=== PATIENT | male | born 1970 | race Caucasian/White ===

== ENCOUNTER 2021-03-07 14:48 | Emergency (ER) | payer SELFPAY ==
--- NOTE | ~2021-03-07 | XR_ITS ---
EXAMINATION: XR knee RT 2V DATE: 03/07/2021 15:34 INDICATION: Right knee pain and swelling TECHNIQUE: Two views of the right knee were obtained. COMPARISON: None. FINDINGS: Alignment is normal. No fracture or osteochondral lesion. 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 There is a moderate size joint effusion. Soft tissues are unremarkable. IMPRESSION: 1. Moderate size joint effusion. Reviewed, dictated and finalized at location B.
[2021-03-07 15:05] VITALS: BP 162/92; PULSE 87; RESP 20; TEMP 36.7; O2SAT 95
[2021-03-07] MEDS: KETOROLAC (*BKC) 60 MG/2 ML VIAL IM (15:26)
--- NOTE | 2021-03-07 15:56 | ED.EXTPRO ---
HPI - Extremity Problem General Chief complaint: Extremity Problem,Nontraumatic Stated complaint: R Knee pain Source: patient Mode of arrival: ambulatory Limitations: no limitations History of Present Illness HPI Narrative: this is a 42-year-old gentleman that presents with right knee pain and swelling with no known injury has good range of motion although decreased secondary to pain and swelling, there is some point tenderness lateral aspect of his right knee with some no redness no erythema no calf pain or tenderness no fever or chills. Complaint: extremity pain and extremity swelling Onset (ago): week(s) Pain Consistency: constant Location: right and lower extremity Severity scale (1-10): 3 Quality: dull Radiation: none Relieving factors: immobilization Exacerbating factors: range of motion and weight bearing Related Data Allergies Allergy/AdvReac Type Severity Reaction Status Date / Time No Known Allergies Allergy Verified 03/07/21 15:16 Review of Systems Review of Systems: All systems reviewed & are unremarkable except as noted in HPI and below PMFSH Past Medical History Medical History Patient denies medical problems Exam Const: General: no acute distress Orientation/consciousness: patient oriented x3 HENMT: Head: normal to inspection Eyes: Conjunctivae: conjunctivae normal Pupils: Equal, round and reactive pupils present Neck: Neck: normal visual inspection and no lymphadenopathy Chest: Chest palpation & inspection: normal inspection of the chest Resp: Effort & Inspection: normal respiratory effort Auscultation: clear to auscultation bilaterally Cardio: Rate: regular rate Rhythm: regular rhythm GI: GI Palp: Yes Soft to palpation Percussion: Yes normal to percussion Back/Spine/Pelvis: Back: no CVA tenderness Skin: General skin exam: normal color Rashes: no rashes Neuro: General: patient oriented x3, moves all extremities and no meningeal signs Extrem: Other: right knee swelling and tenderness with palpation and movement Psych: Mental Status: mental status grossly normal Affect: normal affect Course Course Emergency Course: patient's reassessment of right knee has improved with some medication reviewed x-ray findings. Vital Signs Vital signs: Vital Signs Temperature 36.7 C 03/07/21 15:05 Pulse Rate 87 03/07/21 15:05 Respiratory Rate 20 03/07/21 15:05 Blood Pressure 162/92 H 03/07/21 15:05 Pulse Oximetry 95 03/07/21 15:05 Temperature 36.7 C 03/07/21 15:05 Pulse Rate 87 03/07/21 15:05 Respiratory Rate 20 03/07/21 15:05 Blood Pressure 162/92 H 03/07/21 15:05 Pulse Oximetry 95 03/07/21 15:05 Critical Care Time Critical Care Time Critical Care Time: No Discharge Plan Discharge Clinical Impression: Bursitis of right knee Qualifiers: Knee bursitis location: unspecified Qualified Code(s): M70.51 - Other bursitis of knee, right knee Patient Disposition: Home, Self-Care Condition: Stable Instructions: Knee Bursitis (ED) Additional Instructions: take medicine as prescribed continue [place] wrap and follow-up with primary care physician within 1 to 2 weeks further evaluation treatment. Prescriptions: New naproxen 500 mg tablet 500 mg PO BID Qty: 14 RF: 0 Follow-up/Referrals: UNKNOWN,DOCTOR [Primary Care Provider] - Stand Alone Forms: Work/School Release IP Time of Disposition: 16:01
[2021-03-07 16:07] VITALS: RESP 15
== END 2021-03-07 16:07 | disposition home or self-care (01) ==
PROVIDERS: Emergency Provider Emergency Medicine
DX: M70.51 Other bursitis of knee, right knee (principal)
CPT/HCPCS: 73560; 96372; 99283; J1885